=== PATIENT | male | born 1985 | race Caucasian/White ===

== ENCOUNTER 2023-04-25 14:15 | Outpatient (RCR) | payer OTHER, SELFPAY ==
--- NOTE | 2023-03-13 17:54 | PT.OIE ---
Current Diagnoses Pain in left knee (03/13/23) Stiffness of left knee, not elsewhere classified (03/13/23) Stiffness of other specified joint, not elsewhere classified (03/13/23) Low back pain, unspecified (03/13/23) Visit Care Team Role Provider Type Marshall Oro Primary Care Provider Non-Staff Specialty: Medical Address: [address] [place] [address], [place], [address] Email: Mario Emery MD Attending Provider Non-Staff Family Provider Referring Provider Specialty: Family Practice Address: [facility], Fax: Email: Physical Therapy Initial Evaluation PT-OP-A Visit Information Start: 03/13/23 17:21 Freq: Status: Active Protocol: Document 03/13/23 09:30 DCW (Rec: 03/13/23 17:39 DCW [id number]) Out-Patient Physical Therapy Visit Information Visit Information Visit Type Initial Evaluation Visit Start Time 09:30 Visit Stop Time 10:15 Total Visit Minutes 45 Visit Number 1 Number of CLINICAL NURSING MANAGER Visits 0 Evaluation Information Evaluation Date 03/13/23 PT-OP-B Current Condition Start: 03/13/23 17:21 Freq: Status: Active Protocol: Document 03/13/23 09:30 DCW (Rec: 03/13/23 17:39 DCW [id number]) Current Condition History of Current Condition Onset Date 20+ year history Current Complaints L Knee pain with running, general LBP History of Current Condition Pt is a 37 year old male presenting with a 23 year history of left knee pain. Pt reports he initially tore his ACL in highschool football in 1999, and underwent a surgical reconstruction. Admits he probably recovered 75-80% at the time, but has always had some associated soreness, and difficulty kneeling on it. Overall, however, felt his knee was fairly stable all this time. Pt typically stays active with running 2-3 miles every other day, however in January, pt's left knee began bothering him a lot more, specifically in his posterolateral knee. Reports he took a week off from running, but after restarting, can still only run 1/4-1/2 mile before it really begins to bother him. Additionally, pt reports fairly general, low -level lumbar pain, reports it 's always fairly mild, but is always just there. Reports he has tried getting a really good mattress, makes sure he uses good lifting techniques, but it still regularly bothers him. Admits his job as a [employer] has probably not really helped his low back. Has tried topical creams , but has not found them helpful. 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 Patient Questionnaires Lower Extremity Functional Scale LEFS Score 62/80 = 77.5% LEFS Impairment 20 to 39% Impaired (Score 48- 62) Oswestry Low Back Index Oswestry Score 6/50 = 12% Oswestry Impairment 1 to 19% Impaired (Score 1-19) OP-PT Pain Assessment Pain Assessment Grid Paper Pain Assessment Grid Completed Yes: See scan PT-OP-F Manual Assessment Start: 03/13/23 17:21 Freq: Status: Active Protocol: Document 03/13/23 09:30 DCW (Rec: 03/13/23 17:39 DCW [id number]) Manual Assessments Soft Tissue Assessment Soft Tissue Mobility Assessment Moderate-severe tone left lateral gastroc with tenderness to palpation 3/4: wincing and withdraw Joint Mobility Assessment Joint Mobility Assessment L1-4 hypomobility with P->A joint mobilization PT-OP-L Special Tests Start: 03/13/23 17:21 Freq: Status: Active Protocol: Document 03/13/23 09:30 DCW (Rec: 03/13/23 17:39 DCW [id number]) Special Tests Lumbar Spine Special Tests Nakul Test Results Positive bilaterally Vertical Spine Loading Test Results Negative Compression Test Results Negative Hip Special Tests Shoshana's Test Test Results Positive bilaterally Knee Special Tests Varus- 0 Degrees Test Results Negative Valgus- 0 Degrees Test Results Negative Posterior Draw Test Results Negative Clem Test Test Results Negative Apley's Compression Test Results Negative Anterior Draw Test Results Increased anterior instability on left PT-OP-M Strength Start: 03/13/23 17:21 Freq: Status: Active Protocol: Document 03/13/23 09:30 DCW (Rec: 03/13/23 17:39 DCW [id number]) Knee Strength Knee Manual Muscle Testing Right Flexion (S2) 5 Normal Extension (L3) 5 Normal Left Flexion (S2) 4+ Good+ Extension (L3) 4 Good PT-OP-Q Treatments Start: 03/13/23 17:21 Freq: Status: Active Protocol: Document 03/13/23 09:30 DCW (Rec: 03/13/23 17:43 DCW [id number]) Therapeutic Exercises Supine Exercises Hip Flexors Supine Exercise Name Psoas stretch /c leg off table Standing Exercises Calf stretch Standing Exercise Name Heel hang off step, runner's stretch Hip Flexors Standing Exercise Name Psoas stretch - Half-kneeling lunge PT-OP-T Assessment and Plan Start: 03/13/23 17:21 Freq: Status: Active Protocol: Document 03/13/23 09:30 DCW (Rec: 03/13/23 17:54 DCW [id number]) Physical Therapy Assessment Rehab Potential Rehabilitation Potential Good Evaluation Complexity Number of Personal Factors/Comorbidities 1-2 Number of Body Systems Impaired 1-2 Clinical Presentation at Evaluation Stable Impairments Impairments Functional Activities,Pain, Soft Tissue Mobility,Tone Goals Two Impairment Pt experiences left knee pain when running more than 1/4-1/2 miles Room Service Bellhop Goal (LTG) Pt to report regular running of 2-3 miles every other day without increased pain to demonstrate return to normal functional level. LTG Duration 05/13/23 One Impairment Pt does not have an appropriate home exercise program Short Term Goal (STG) Pt to be independent and compliant with an appropriate HEP STG Duration 04/13/23 Assessment Summary Assessment Pt presents with signs and symptoms consistent with referring diagnosis. Pt does demonstrate increased joint laxity in left knee, likely still stemming from ACL reconstruction 23 years ago. Pt shows significantly increased tone in left lateral calf, which may be caused by protective spasming attempting to stabilize his knee. Pt would likely benefit from skilled therapy focusing on STM/flexibility of left gastroc in order to decrease tone and improve mobility to allow for return to prior activity levels. Additionally, pt's low back pain appears to be likely degenerative changes through his low back, resulting in spasming of his bilateral hip flexors. 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 Again, pt will likely benefit from focus on improving tone of involved musculature through STM and stretching. Physical Therapy Plan Frequency and Duration Frequency of Treatment 1x/Week Plan of Care Start Date 03/13/23 Plan of Care End Date 05/13/23 Therapeutic Interventions Therapeutic Interventions Home Exercise Program,Joint Mobilizations,Manual Therapy, Patient/Caregiver Education, Self-Care/Home Management,Soft Tissue Mobilization, Therapeutic Activities, Therapeutic Exercises Modalities Cold Pack/Ice Massage,Hot Packs,Ultrasound Next Visit Focus/Plan Next Note Type Treatment Note Next Visit Plan STM/flexibility for left gastroc and bilateral hip flexors
--- NOTE | 2023-03-13 17:55 | PT.OPPOC ---
Physical, Occupational & Speech Therapy At [facility] Current Diagnoses Pain in left knee (03/13/23) Stiffness of left knee, not elsewhere classified (03/13/23) Stiffness of other specified joint, not elsewhere classified (03/13/23) Low back pain, unspecified (03/13/23) Visit Care Team Role Provider Type Marshall Oro Primary Care Provider Non-Staff Specialty: Medical Address: [address] [place] [address], [id number] Email: Mario Emery MD Attending Provider Non-Staff Family Provider Referring Provider Specialty: Family Practice Address: [facility], Fax: Email: Plan Of Care PT-OP-T Assessment and Plan Start: 03/13/23 17:21 Freq: Status: Active Protocol: Document 03/13/23 09:30 DCW (Rec: 03/13/23 17:54 DCW [id number]) Physical Therapy Assessment Rehab Potential Rehabilitation Potential Good Evaluation Complexity Number of Personal Factors/Comorbidities 1-2 Number of Body Systems Impaired 1-2 Clinical Presentation at Evaluation Stable Impairments Impairments Functional Activities,Pain, Soft Tissue Mobility,Tone Goals Two Impairment Pt experiences left knee pain when running more than 1/4-1/2 miles Termite Control Service Representative Goal (LTG) Pt to report regular running of 2-3 miles every other day without increased pain to demonstrate return to normal functional level. LTG Duration 05/13/23 One Impairment Pt does not have an appropriate home exercise program Short Term Goal (STG) Pt to be independent and compliant with an appropriate HEP STG Duration 04/13/23 Assessment Summary Assessment Pt presents with signs and symptoms consistent with referring diagnosis. Pt does demonstrate increased joint laxity in left knee, likely still stemming from ACL reconstruction 23 years ago. Pt shows significantly increased tone in left lateral calf, which may be caused by protective spasming attempting to stabilize his knee. Pt would likely benefit from skilled therapy focusing on STM/flexibility of left gastroc in order to decrease tone and improve mobility to allow for return to prior activity levels. Additionally, pt's low back pain appears to be likely degenerative changes through his low back, resulting in spasming of his bilateral hip flexors. 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 Again, pt will likely benefit from focus on improving tone of involved musculature through STM and stretching. Physical Therapy Plan Frequency and Duration Frequency of Treatment 1x/Week Plan of Care Start Date 03/13/23 Plan of Care End Date 05/13/23 Therapeutic Interventions Therapeutic Interventions Home Exercise Program,Joint Mobilizations,Manual Therapy, Patient/Caregiver Education, Self-Care/Home Management,Soft Tissue Mobilization, Therapeutic Activities, Therapeutic Exercises Modalities Cold Pack/Ice Massage,Hot Packs,Ultrasound Next Visit Focus/Plan Next Note Type Treatment Note Next Visit Plan STM/flexibility for left gastroc and bilateral hip flexors Plan of Care Dates Plan of Care Start Date 03/13/23 Plan of Care End Date 05/13/23 Electronically Signed by: Damien Foley, PT 03/13/23 3711 If you are in agreement with this Plan of Care, please return a signed and dated copy. I have reviewed this Plan of Care and certify that the skilled therapy services above are required to meet the patient?s needs. Physician Signature Date Printed Name and Credentials Clinical Instructor Signature Printed Name and Credentials
--- NOTE | 2023-04-09 10:17 | PT.OTN ---
Current Diagnoses Pain in left knee (04/09/23) Stiffness of left knee, not elsewhere classified (04/09/23) Stiffness of other specified joint, not elsewhere classified (04/09/23) Low back pain, unspecified (04/09/23) Physical Therapy Treatment Note PT-OP-A Visit Information Start: 03/13/23 17:21 Freq: Status: Active Protocol: Document 04/09/23 09:30 DCW (Rec: 04/09/23 10:17 DCW [id number]) Out-Patient Physical Therapy Visit Information Visit Information Visit Type Treatment Note Visit Start Time 09:30 Visit Stop Time 10:15 Total Visit Minutes 45 Visit Number 2 Number of BOAT JOINER Visits 0 Evaluation Information Evaluation Date 03/13/23 PT-OP-B Current Condition Start: 03/13/23 17:21 Freq: Status: Active Protocol: Document 03/13/23 09:30 DCW (Rec: 03/13/23 17:39 DCW [id number]) Current Condition History of Current Condition Onset Date 20+ year history Current Complaints L Knee pain with running, general LBP History of Current Condition Pt is a 37 year old male presenting with a 23 year history of left knee pain. Pt reports he initially tore his ACL in highschool football in 1999, and underwent a surgical reconstruction. Admits he probably recovered 75-80% at the time, but has always had some associated soreness, and difficulty kneeling on it. Overall, however, felt his knee was fairly stable all this time. Pt typically stays active with running 2-3 miles every other day, however in January, pt's left knee began bothering him a lot more, specifically in his posterolateral knee. Reports he took a week off from running, but after restarting, can still only run 1/4-1/2 mile before it really begins to bother him. Additionally, pt reports fairly general, low -level lumbar pain, reports it 's always fairly mild, but is always just there. Reports he has tried getting a really good mattress, makes sure he uses good lifting techniques, but it still regularly bothers him. Admits his job as a [employer] has probably not really helped his low back. Has tried topical creams , but has not found them helpful. 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, reports his back was very flared up PT-OP-F Manual Assessment Start: 03/13/23 17:21 Freq: Status: Active Protocol: Document 03/13/23 09:30 DCW (Rec: 03/13/23 17:39 DCW [id number]) Manual Assessments Soft Tissue Assessment Soft Tissue Mobility Assessment Moderate-severe tone left lateral gastroc with tenderness to palpation 3/4: wincing and withdraw Joint Mobility Assessment Joint Mobility Assessment L1-4 hypomobility with P->A joint mobilization PT-OP-L Special Tests Start: 03/13/23 17:21 Freq: Status: Active Protocol: Document 03/13/23 09:30 DCW (Rec: 03/13/23 17:39 DCW [id number]) Special Tests Lumbar Spine Special Tests Nakul Test Results Positive bilaterally Vertical Spine Loading Test Results Negative Compression Test Results Negative Hip Special Tests Shoshana's Test Test Results Positive bilaterally Knee Special Tests Varus- 0 Degrees Test Results Negative Valgus- 0 Degrees Test Results Negative Posterior Draw Test Results Negative Clem Test Test Results Negative Apley's Compression Test Results Negative Anterior Draw Test Results Increased anterior instability on left PT-OP-M Strength Start: 03/13/23 17:21 Freq: Status: Active Protocol: Document 03/13/23 09:30 DCW (Rec: 03/13/23 17:39 DCW [id number]) Knee Strength Knee Manual Muscle Testing Right Flexion (S2) 5 Normal Extension (L3) 5 Normal Left Flexion (S2) 4+ Good+ Extension (L3) 4 Good PT-OP-Q Treatments Start: 03/13/23 17:21 Freq: Status: Active Protocol: Document 04/09/23 09:30 DCW (Rec: 04/09/23 10:17 DCW [id number]) Gym Equipment Therapeutic Ball Bridging Exercise Details Bridging /c feet on ball - added HS curls Ball Size/Color Red - 55 cm Body Position Supine LTR Exercise Details LTR Ball Size/Color Red - 55 cm Body Position Supine Manual Therapy Treatment Soft Tissue Mobilization Lumbar Body Location Lumbar paraspinals Mobilization Type Strumming,Sustained Pressure, Trigger Point Release Intensity/Depth Moderate Body Position Prone Hip Flexors Body Location Hip Flexors Mobilization Type Strumming,Sustained Pressure Intensity/Depth Moderate Body Position Hooklying Gastroc Body Location L Gastrosoleus Mobilization Type Instrument Assisted,Rolling, Strumming,Sustained Pressure, Trigger Point Release Intensity/Depth Moderate Body Position Prone Joint Mobilizations Lumbar Joint Lumbar mobs Direction P->A Grade II Body Position Prone PT-OP-T Assessment and Plan Start: 03/13/23 17:21 Freq: Status: Active Protocol: Document 04/09/23 09:30 DCW (Rec: 04/09/23 10:17 DCW [id number]) Physical Therapy Assessment Impairments Impairments Functional Activities,Pain, Soft Tissue Mobility,Tone Goals Two Impairment Pt experiences left knee pain when running more than 1/4-1/2 miles Manager Client Support Goal (LTG) Pt to report regular running of 2-3 miles every other day without increased pain to demonstrate return to normal functional level. LTG Duration 05/13/23 One Impairment Pt does not have an appropriate home exercise program Short Term Goal (STG) Pt to be independent and compliant with an appropriate HEP STG Duration 04/13/23 Assessment Summary Assessment Significant increase in swelling and inflammation in lumbar spine today, continues to demonstrate moderate-severe lateral L calf tone. Left knee still more lax than expected. Discussed pt may want to touch base with PCP, inquire about imaging. Physical Therapy Plan Frequency and Duration Frequency of Treatment 1x/Week Plan of Care Start Date 03/13/23 Plan of Care End Date 05/13/23 Therapeutic Interventions Therapeutic Interventions Home Exercise Program,Joint Mobilizations,Manual Therapy, Patient/Caregiver Education, Self-Care/Home Management,Soft Tissue Mobilization, Therapeutic Activities, Therapeutic Exercises Modalities Cold Pack/Ice Massage,Hot Packs,Ultrasound Next Visit Focus/Plan Next Note Type Treatment Note Next Visit Plan STM/flexibility for left gastroc and bilateral hip flexors
--- NOTE | 2023-04-25 14:59 | PT.OTN ---
Current Diagnoses Pain in left knee (04/25/23) Stiffness of left knee, not elsewhere classified (04/25/23) Stiffness of other specified joint, not elsewhere classified (04/25/23) Low back pain, unspecified (04/25/23) Physical Therapy Treatment Note PT-OP-A Visit Information Start: 03/13/23 17:21 Freq: Status: Active Protocol: Document 04/25/23 14:15 DCW (Rec: 04/25/23 14:59 DCW [id number]) Out-Patient Physical Therapy Visit Information Visit Information Visit Type Treatment Note Visit Start Time 14:15 Visit Stop Time 15:00 Total Visit Minutes 45 Visit Number 3 Number of HEAVY TRUCK MECHANIC Visits 0 Evaluation Information Evaluation Date 03/13/23 PT-OP-B Current Condition Start: 03/13/23 17:21 Freq: Status: Active Protocol: Document 03/13/23 09:30 DCW (Rec: 03/13/23 17:39 DCW [id number]) Current Condition History of Current Condition Onset Date 20+ year history Current Complaints L Knee pain with running, general LBP History of Current Condition Pt is a 37 year old male presenting with a 23 year history of left knee pain. Pt reports he initially tore his ACL in highschool football in 1999, and underwent a surgical reconstruction. Admits he probably recovered 75-80% at the time, but has always had some associated soreness, and difficulty kneeling on it. Overall, however, felt his knee was fairly stable all this time. Pt typically stays active with running 2-3 miles every other day, however in January, pt's left knee began bothering him a lot more, specifically in his posterolateral knee. Reports he took a week off from running, but after restarting, can still only run 1/4-1/2 mile before it really begins to bother him. Additionally, pt reports fairly general, low -level lumbar pain, reports it 's always fairly mild, but is always just there. Reports he has tried getting a really good mattress, makes sure he uses good lifting techniques, but it still regularly bothers him. Admits his job as a [employer] has probably not really helped his low back. Has tried topical creams , but has not found them helpful. Treatment Goals Patient/Caregiver Goals Decrease knee and low back pain to return to running PT-OP-C Subjective Start: 03/13/23 17:21 Freq: Status: Active Protocol: Document 04/25/23 14:15 DCW (Rec: 04/25/23 14:59 DCW [id number]) OP-PT Subjective Patient Comments Patient Comments Pt reports his PCP has been out of town for the past few weeks, so he has had difficulty getting an answer about imaging, but is hoping he'll be getting x-rays soon. PT-OP-F Manual Assessment Start: 03/13/23 17:21 Freq: Status: Active Protocol: Document 03/13/23 09:30 DCW (Rec: 03/13/23 17:39 DCW [id number]) Manual Assessments Soft Tissue Assessment Soft Tissue Mobility Assessment Moderate-severe tone left lateral gastroc with tenderness to palpation 3/4: wincing and withdraw Joint Mobility Assessment Joint Mobility Assessment L1-4 hypomobility with P->A joint mobilization PT-OP-L Special Tests Start: 03/13/23 17:21 Freq: Status: Active Protocol: Document 03/13/23 09:30 DCW (Rec: 03/13/23 17:39 DCW [id number]) Special Tests Lumbar Spine Special Tests Nakul Test Results Positive bilaterally Vertical Spine Loading Test Results Negative Compression Test Results Negative Hip Special Tests Shoshana's Test Test Results Positive bilaterally Knee Special Tests Varus- 0 Degrees Test Results Negative Valgus- 0 Degrees Test Results Negative Posterior Draw Test Results Negative Clem Test Test Results Negative Apley's Compression Test Results Negative Anterior Draw Test Results Increased anterior instability on left PT-OP-M Strength Start: 03/13/23 17:21 Freq: Status: Active Protocol: Document 03/13/23 09:30 DCW (Rec: 03/13/23 17:39 DCW [id number]) Knee Strength Knee Manual Muscle Testing Right Flexion (S2) 5 Normal Extension (L3) 5 Normal Left Flexion (S2) 4+ Good+ Extension (L3) 4 Good PT-OP-Q Treatments Start: 03/13/23 17:21 Freq: Status: Active Protocol: Document 04/25/23 14:15 DCW (Rec: 04/25/23 14:59 DCW [id number]) Therapeutic Exercises Supine Exercises Foam Roll Supine Exercise Name Foam Roll pec stretch Hip Flexors Supine Exercise Name Psoas stretch /c leg off table Manual Therapy Treatment Soft Tissue Mobilization Lumbar Body Location Lumbar paraspinals Mobilization Type Strumming,Sustained Pressure, Trigger Point Release Intensity/Depth Moderate Body Position Prone Hip Flexors Body Location Hip Flexors Mobilization Type Strumming,Sustained Pressure Intensity/Depth Moderate Body Position Hooklying Gastroc Body Location L Gastrosoleus Mobilization Type Instrument Assisted,Rolling, Strumming,Sustained Pressure, Trigger Point Release Intensity/Depth Moderate Body Position Prone Joint Mobilizations Lumbar Joint Lumbar mobs Direction P->A Grade II Body Position Prone Manual Traction Lumbar Details Short-axis traction /c strap Body Position Hooklying PT-OP-T Assessment and Plan Start: 03/13/23 17:21 Freq: Status: Active Protocol: Document 04/25/23 14:15 DCW (Rec: 04/25/23 14:59 DCW [id number]) Physical Therapy Assessment Impairments Impairments Functional Activities,Pain, Soft Tissue Mobility,Tone Goals Two Impairment Pt experiences left knee pain when running more than 1/4-1/2 miles It Desktop Support Specialist Goal (LTG) Pt to report regular running of 2-3 miles every other day without increased pain to demonstrate return to normal functional level. LTG Duration 05/13/23 One Impairment Pt does not have an appropriate home exercise program Short Term Goal (STG) Pt to be independent and compliant with an appropriate HEP STG Duration 04/13/23 Assessment Summary Assessment Continues to display increased lumbar inflammation/edema, bilateral calf tightness, helped with rolling. Good response to manual traction today, felt relief in low back . Physical Therapy Plan Frequency and Duration Frequency of Treatment 1x/Week Plan of Care Start Date 03/13/23 Plan of Care End Date 05/13/23 Therapeutic Interventions Therapeutic Interventions Home Exercise Program,Joint Mobilizations,Manual Therapy, Patient/Caregiver Education, Self-Care/Home Management,Soft Tissue Mobilization, Therapeutic Activities, Therapeutic Exercises Modalities Cold Pack/Ice Massage,Hot Packs,Ultrasound Next Visit Focus/Plan Next Note Type Treatment Note Next Visit Plan STM/flexibility for left gastroc and bilateral hip flexors
--- NOTE | 2023-05-05 12:46 | PT.OPDS ---
Current Diagnoses Pain in left knee (04/25/23) Stiffness of left knee, not elsewhere classified (04/25/23) Stiffness of other specified joint, not elsewhere classified (04/25/23) Low back pain, unspecified (04/25/23) Visit Care Team Role Provider Type Marshall Preethi Primary Care Provider Non-Staff Specialty: Medical Address: [address] [place] [address], [place], [address] Email: Mario Emery MD Attending Provider Non-Staff Family Provider Referring Provider Specialty: Family Practice Address: [facility], Fax: Email: Visit Number Visit Number 3 Discharge Summary PT-OP-B Current Condition Start: 03/13/23 17:21 Freq: Status: Active Protocol: Document 03/13/23 09:30 DCW (Rec: 03/13/23 17:39 DCW [id number]) Current Condition History of Current Condition Onset Date 20+ year history Current Complaints L Knee pain with running, general LBP History of Current Condition Pt is a 37 year old male presenting with a 23 year history of left knee pain. Pt reports he initially tore his ACL in highschool football in 1999, and underwent a surgical reconstruction. Admits he probably recovered 75-80% at the time, but has always had some associated soreness, and difficulty kneeling on it. Overall, however, felt his knee was fairly stable all this time. Pt typically stays active with running 2-3 miles every other day, however in January, pt's left knee began bothering him a lot more, specifically in his posterolateral knee. Reports he took a week off from running, but after restarting, can still only run 1/4-1/2 mile before it really begins to bother him. Additionally, pt reports fairly general, low -level lumbar pain, reports it 's always fairly mild, but is always just there. Reports he has tried getting a really good mattress, makes sure he uses good lifting techniques, but it still regularly bothers him. Admits his job as a [employer] has probably not really helped his low back. Has tried topical creams , but has not found them helpful. Treatment Goals Patient/Caregiver Goals Decrease knee and low back pain to return to running PT-OP-C Subjective Start: 03/13/23 17:21 Freq: Status: Active Protocol: Document 04/25/23 14:15 DCW (Rec: 04/25/23 14:59 DCW [id number]) OP-PT Subjective Patient Comments Patient Comments Pt reports his PCP has been out of town for the past few weeks, so he has had difficulty getting an answer about imaging, but is hoping he'll be getting x-rays soon. PT-OP-F Manual Assessment Start: 03/13/23 17:21 Freq: Status: Active Protocol: Document 03/13/23 09:30 DCW (Rec: 03/13/23 17:39 DCW [id number]) Manual Assessments Soft Tissue Assessment Soft Tissue Mobility Assessment Moderate-severe tone left lateral gastroc with tenderness to palpation 3/4: wincing and withdraw Joint Mobility Assessment Joint Mobility Assessment L1-4 hypomobility with P->A joint mobilization PT-OP-L Special Tests Start: 03/13/23 17:21 Freq: Status: Active Protocol: Document 03/13/23 09:30 DCW (Rec: 03/13/23 17:39 DCW [id number]) Special Tests Lumbar Spine Special Tests Nakul Test Results Positive bilaterally Vertical Spine Loading Test Results Negative Compression Test Results Negative Hip Special Tests Shoshana's Test Test Results Positive bilaterally Knee Special Tests Varus- 0 Degrees Test Results Negative Valgus- 0 Degrees Test Results Negative Posterior Draw Test Results Negative Clem Test Test Results Negative Apley's Compression Test Results Negative Anterior Draw Test Results Increased anterior instability on left PT-OP-M Strength Start: 03/13/23 17:21 Freq: Status: Active Protocol: Document 03/13/23 09:30 DCW (Rec: 03/13/23 17:39 DCW [id number]) Knee Strength Knee Manual Muscle Testing Right Flexion (S2) 5 Normal Extension (L3) 5 Normal Left Flexion (S2) 4+ Good+ Extension (L3) 4 Good PT-OP-T Assessment and Plan Start: 03/13/23 17:21 Freq: Status: Active Protocol: Document 05/05/23 12:38 DCW (Rec: 05/05/23 12:46 DCW [id number]) Physical Therapy Assessment Goals Two Impairment Pt experiences left knee pain when running more than 1/4-1/2 miles Care Home Goal (LTG) Pt to report regular running of 2-3 miles every other day without increased pain to demonstrate return to normal functional level. LTG Duration 05/13/23 One Impairment Pt does not have an appropriate home exercise program Short Term Goal (STG) Pt to be independent and compliant with an appropriate HEP STG Duration 04/13/23 Assessment Summary Assessment Patient phoned clinic to request discharge, will be going out of town for an extended period of time. Physical Therapy Plan Discharge Physical Therapy Discharge Reasons Patient Request Next Visit Focus/Plan Next Note Type Discharge Summary
== END 2023-05-06 13:54 | disposition home or self-care (01) ==
LOC: PHYS 14:15
PROVIDERS: Family Provider General Practice; PCP Student in an Organized Health Care Education/Training Program; Referring Provider General Practice; Visit Provider General Practice
DX: M54.50 Low back pain, unspecified (principal); M25.562 Pain in left knee; M25.662 Stiffness of left knee, not elsewhere classified; M25.69 Stiffness of other specified joint, not elsewhere classified
CPT/HCPCS: 97110; 97140; 97161

== ENCOUNTER → 2024-09-13 07:54 | Outpatient (CLI) | payer OTHER, SELFPAY ==
--- NOTE | 2024-09-13 08:13 | DI.MRI.S_ITS ---
PROCEDURE: MR KNEE LT WO/W CON INDICATIONS: POSS ENCHONDROMA TECHNIQUE: Noncontrast sagittal PD fast spin echo and T2 fast spin echo with fat saturation, sagittal 3-D FLASH with fat saturation; coronal T1 spin echo and PD fast spin echo with fat saturation, and axial T1 spin echo and PD fast spin echo with fat saturation through the knee. Post-contrast axial, coronal, and sagittal T1 spin echo with fat saturation through the knee. COMPARISON: None. FINDINGS: Image quality: Excellent. Menisci: The medial meniscus is unremarkable. In the lateral meniscus, the posterior root appears diminutive, concerning for high-grade radial tear. There is horizontal tear the anterior root of the lateral meniscus, with 6 mm parameniscal cyst. No extrusion of the lateral meniscus body. Cruciate ligaments: Status post ACL reconstruction, with intact ACL graft. The PCL is intact. There is marked marrow edema at the tibial eminence, about the tibial tunnel, favor reactive. The trace amount of fluid is seen within the tibial tunnel. Medial structures: The medial collateral ligament appears intact. The posterior oblique ligament, semimembranosus tendon insertions, and oblique popliteal liagment, and meniscocapsular junction appear intact. Visualized portions of the pes anserinus tendons appear normal. No abnormal bursal fluid. Lateral structures: The lateral collateral ligament, long and short heads of the biceps femoris tendon appear intact. The popliteus tendon appears normal; the popliteofibular ligament appears intact. The posterosuperior and anteroinferior popliteomeniscal fascicles appear intact. The arcuate and fabellofibular ligaments appear intact, around the lateral inferior geniculate artery. Iliotibial band appears normal. Anterior structures: The quadriceps tendon is intact. Postprocedure changes of the patella tendon. The medial and lateral patellofemoral ligaments are intact. Alignment of the patellofemoral compartment is anatomic. Bones and cartilage: In the patellofemoral compartment, there is partial-thickness chondral fissuring in the lateral patellar facet, with mild subchondral marrow edema. The cartilage of the trochlea is well maintained. In the medial compartment, the cartilage is grossly well maintained. In the lateral compartment, there is multi focal high-grade chondral loss in the weight-bearing portion of the lateral femoral condyle, with mild subchondral marrow edema. No acute fracture. Susceptibility artifact anterior to the distal femur diaphysis, favoring postprocedural. No suspicious marrow replacing lesion. No enchondroma. Joint space: Small knee effusion. No popliteal cyst. Popliteal vasculature is unremarkable. No intra-articular body. IMPRESSION: 1. Tear of the lateral meniscus with small parameniscal cyst. 2. Status post ACL reconstruction with intact ACL graft. Marked reactive marrow edema about the tibial tunnel. 3. Moderate, lateral compartment predominant chondrosis with mild subchondral marrow edema. 4. No suspicious marrow replacing lesion. No enchondroma. Dictated by: Cyn Roberts M.D. on 09/13/2024 at 14:12 Approved by: Cyn Roberts M.D. on 09/13/2024 at 14:27
== END ==
PROVIDERS: Family Provider General Practice
DX: S83.282A Other tear of lateral meniscus, current injury, left knee, initial encounter (principal); M94.262 Chondromalacia, left knee; M25.562 Pain in left knee
CPT/HCPCS: 73723; A9579

== ENCOUNTER → 2025-02-21 15:10 | Outpatient (CLI) | payer OTHER, SELFPAY ==
--- NOTE | 2025-02-21 15:11 | DI.MRI.S_ITS ---
PROCEDURE: MR LUMBAR SPINE WO CON INDICATIONS: Dorsalgia TECHNIQUE: Noncontrast sagittal T1 spin echo and T2 fast echo, sagittal STIR, and T2 fast spin echo through the lumbar spine. In cases with scoliosis, additional coronal T2 fast spin echo may be performed. COMPARISON: None. FINDINGS: Image quality: Excellent. Alignment and Curvature: There is normal bony alignment. Bone Marrow: Marrow is of normal overall signal. No acute vertebral body compression fractures. Spinal Cord: Conus medullaris terminates at the T12 level. Visualized cord demonstrates normal signal and size. Paraspinous Soft Tissues: No paravertebral masses. T12-L1: Normal appearance. L1-L2: Normal appearance. L2-L3: There is a disc bulge, without spinal stenosis. L3-L4: There is mild disc bulge as well as bilateral facet arthropathy and ligamentum flavum thickening. There is mild bilateral foraminal narrowing L4-L5: There is disc desiccation as well as disc bulge with superimposed shallow right intraforaminal protrusion. There is also small posterior annular fissure. There is mild to moderate central spinal stenosis as well as moderate right lateral recess stenosis, with some mass effect on the descending right L5 root. There is also mild left lateral recess stenosis and mild bilateral foraminal narrowing, due also to facet arthropathy and ligamentum flavum thickening. L5-S1: Bilateral facet arthropathy, without significant spinal stenosis. IMPRESSION: 1. Degenerative changes, most prominent at L4-L5 as above, with mild to moderate central spinal stenosis as well as some right lateral spinal stenosis at this level. 2. No acute focal osseous lesion seen. Dictated by: Huseyin Huerta M.D. on 02/21/2025 at 18:21 Approved by: Huseyin Huerta M.D. on 02/21/2025 at 18:29
== END ==
PROVIDERS: Family Provider General Practice
DX: M47.816 Spondylosis without myelopathy or radiculopathy, lumbar region (principal); M47.817 Spondylosis without myelopathy or radiculopathy, lumbosacral region; M48.061 Spinal stenosis, lumbar region without neurogenic claudication; M54.9 Dorsalgia, unspecified
CPT/HCPCS: 72148